=== PATIENT | male | born 1955 | race Caucasian/White ===

== ENCOUNTER 2019-02-26 08:22 | Day surgery (SDC) | payer OTHER ==
[~2019-02-26 08:22] MED LIST: Fluorouracil 100 MG, Enoxaparin Sodium 25 MG, EPINEPHrine 0.3 MG, Dextrose 50% 3 ML in ... IRR SCH
[2019-02-26] MEDS ORDERED: Cyclopentolate 1% Opth Drop 2 ML BOT ONE (08:44)
[2019-02-26] MEDS ORDERED: Phenylephrine 2.5% Ophth Soln 5 ML BOT ONE (08:44)
[2019-02-26] MEDS ORDERED: Midazolam HCl 2 mg/2 ml Vial ONE (10:17)
--- NOTE | 2019-02-26 12:22 | OP ---
DATE OF PROCEDURE: 02/26/2019 PREOPERATIVE DIAGNOSIS: Macular hole, left eye. POSTOPERATIVE DIAGNOSIS: Macular hole, left eye. PROCEDURE PERFORMED: Pars plana vitrectomy and internal limiting membrane peel, left eye. ANESTHESIA: Local with monitored anesthesia care. PROCEDURE IN DETAIL: The patient was identified in the preoperative holding area. Appropriate informed consent for the planned surgical procedure on the left eye had been obtained. The patient was transported to the operative suite. Appropriate cardiopulmonary monitoring was established. Local anesthesia was obtained using retrobulbar modified Van Lint lid block using 50:50 mixture of 4% lidocaine and 0.75% bupivacaine. The patient was prepped and draped in usual sterile manner for ophthalmic surgery on the left eye. Lid speculum placed in the left eye. A 25-gauge trocar was placed in the conjunctiva and sclera superotemporally, inferotemporally, and supranasally. Infusion line was placed inferotemporally. Light pipe and vitreous cutter were inserted to the eye. Core vitrectomy was performed. The posterior hyaloid face was elevated and peeled across the macula using vacuum suction. Indocyanine green dye was infused on the posterior pole x2, identifying the internal limiting membrane and epiretinal membrane. These were elevated using a membrane scraper and peeled across the macula using end gripping forceps. Complete air-fluid exchange was performed and 10 minutes being allowed for fluid to drain posteriorly. Prophylactic laser was placed behind the sclerotomies using indirect ophthalmoscopy. 28% sulfur hexafluoride gas was infused into the eye. All 3 sclerotomies were suture closed. Retrobulbar Kenalog and subconjunctival Ancef were placed. Antibiotic ointment was placed. The eye was patched and shielded. The patient was taken to postoperative recovery unit in good condition, having suffered no immediate perioperative complications. The patient was instructed to keep patch and shield on, avoid lifting and bending, followup appointment with Dr. Shapr in the morning. Job ID: [id number]
[2019-02-26] MEDS ORDERED: Indocyanine Green 25 MG/10 ML VIAL ONE (14:38)
[2019-02-26] MEDS ORDERED: Lidocaine 4% PF 5 ML AMP ONE (14:38)
[2019-02-26] MEDS ORDERED: Maxitrol 0.1% Opth Oint 3.5 GM TUBE ONE (14:38)
[2019-02-26] MEDS ORDERED: Bupivacaine PF 0.75% SDV 10 ML ONE (14:38)
[2019-02-26] MEDS ORDERED: CEFAZOLIN 1 GM VIAL ONE (14:38)
[2019-02-26] MEDS ORDERED: Lidocaine 1% PF 5 ML VIAL ONE (14:38)
[2019-02-26] MEDS ORDERED: PROPOFOL 200 MG/20 ML VIAL ONE (14:38)
[2019-02-26] MEDS ORDERED: Triamcinolone 40 MG/ML VIAL ONE (14:38)
== END 2019-02-26 12:15 | disposition home or self-care (01) ==
LOC: SDC 08:22
PROVIDERS: ATTEND Ophthalmology Retina Specialist
DX: H35.342 Macular cyst, hole, or pseudohole, left eye (principal); I10 Essential (primary) hypertension
CPT/HCPCS: 67025; J0171; J0690; J1650; J2001; J2250; J2704; J3301; J3490; J9190